=== PATIENT | female | born 1955 | race Two or more races ===

== ENCOUNTER 2017-07-28 03:21 | Emergency (ER) | payer MEDICARE, OTHER ==
[~2017-07-28] VITALS: Ht 162.6 cm; Wt 72.6 kg
[~2017-07-28 03:21] MED LIST: ASPI81CH59 PO; ATO40T PO; B-COTAB95 PO; CARV12.544 PO; CLOP75TA28 PO; DIVA250T51 PO; HYDR25TA35 PO; ISOS20TA56 PO; NIFE30TA76 PO; NITR0.4D10 TD; ONDA4TAB5 PO; PERCOT PO; RANO500T2 PO; SEVE800T PO
[2017-07-28] MEDS ORDERED: DEXTROSE (50%) 50ML SYRG IV ONE (03:28)
[2017-07-28] MEDS ORDERED: EPINEPHrine HCL 1 MG/10 ML SYRG IV ONE (03:28)
[2017-07-28] MEDS ORDERED: CALCIUM CHLOR(10%) 100MG/ML 10ML SYRINGE IV ONE (03:28)
[2017-07-28] MEDS ORDERED: AMIODARONE HCL (50 MG/ ML) 3 ML VIAL IV ONE (03:28)
[2017-07-28] MEDS ORDERED: SODIUM BICARBONATE 8.4 % INJ 50ML VIAL IV ONE (03:28)
[2017-07-28] MEDS ORDERED: EPINEPHrine HCL 1 MG/10 ML SYRG ONE (03:51)
[2017-07-28 03:54] LABS: Hemoglobin 10.2 g/dL (12.2-16.2); Mean Corpuscular Hemoglobin 33.2 pg (28.0-32.0); White Blood Cell 8.3 10^3/uL (4.4-10.8)
[2017-07-28 03:55] LABS: Mean Corpuscular Hgb Conc. 32.8 g/dL (32.0-36.0); Mean Corpuscular Volume 101.3 fL (80.0-100.0); Mean Platelet Volume 7.8 fL (6.9-10.8); Platelet Count (auto) 106 10^3/uL (140-450); Red Cell Distribution Width 15.6 % (11.8-14.3)
[2017-07-28 03:57] LABS: Base Excess -7.2 mmol/L (-2.0-2.0); Blood 02Sat 99.1 % (96-100); Blood COHb 0.3 % (0.5-1.5); Blood MetHb 0.3 % (0.0-1.5); HHb 0.9 % (0.0-5.0); MODE AMBU BAG; O2Hb 98.5 % (94.0-97.0); PCO2 21.8 mmHg (35.0-45.0); PO2 450.1 mmHg (80.0-100.0); PO2(T) 437.9 mmHg (80.0-100.0); Sample Type Arterial; pH 7.455 (7.350-7.450)
[2017-07-28 03:58] LABS: Myelocytes % 0; Promyelocytes % 0; Reactive Lymphocytes 0
[2017-07-28 04:13] VITALS: BP 134/72
[2017-07-28 04:25] LABS: INR 1.64 (0.9-1.15); Partial Thromboplastin Time 38.3 sec (22.64-33.71)
[2017-07-28 04:43] LABS: Metamyelocytes % 4
[2017-07-28 04:44] LABS: Anisocytosis Slight; Macrocytosis Slight; Ovalocytes FEW; Platelet Estimate Decreased
[2017-07-28 04:49] LABS: Albumin 2.1 g/dL (3.4-5.0); BUN/Creatinine Ratio 4.9; Bilirubin, Total 0.5 mg/dL (0.2-1.0); Calcium 9.6 mg/dL (8.5-10.1); Magnesium 3.5 mg/dL (1.6-2.6); Total Protein 6.1 g/dL (6.4-8.2)
[2017-07-28 04:55] LABS: Potassium 6.4 mmol/L (3.5-5.1)
== END 2017-07-28 11:29 | disposition expired ==
LOC: EDBD 03:21 → ER 03:27
DX: I46.9 Cardiac arrest, cause unspecified (principal); I13.2 Hypertensive heart and chronic kidney disease with heart failure and with stage 5 chronic kidney disease, or end stage renal disease; E11.22 Type 2 diabetes mellitus with diabetic chronic kidney disease; N18.6 End stage renal disease; I50.9 Heart failure, unspecified; I25.2 Old myocardial infarction; Z86.711 Personal history of pulmonary embolism; Z99.2 Dependence on renal dialysis; E78.00 Pure hypercholesterolemia, unspecified; I25.10 Atherosclerotic heart disease of native coronary artery without angina pectoris; Z86.73 Personal history of transient ischemic attack (TIA), and cerebral infarction without residual deficits; Z79.82 Long term (current) use of aspirin
CPT/HCPCS: 36415; 36600; 71010; 80053; 82805; 83735; 84484; 85007; 85027; 85610; 85730; 92950; 92960; 93005; 99285; J0171; J0282; J7042; 94002